=== PATIENT | female | born 2000 ===

== ENCOUNTER → 2023-01-30 | Day surgery (SDC) | payer BC ==
[2023-01-26 14:15] VITALS: BP 120/45
[~2023-01-30] VITALS: Ht 165.1 cm; Wt 65.8 kg
[~2023-01-30] MED LIST: PROZAC20 MG PO
[2023-01-30 08:33] VITALS: BP 103/50
[2023-01-30 10:28] VITALS: BP 107/58
[2023-01-30 10:43] VITALS: BP 116/63
[2023-01-30 10:58] VITALS: BP 104/62
[2023-01-30 11:13] VITALS: BP 102/64
[2023-01-30 11:24] VITALS: BP 105/64
== END | disposition home or self-care (01) ==
LOC: SDC 01-26 14:00
PROVIDERS: ATTEND Obstetrics & Gynecology
DX: Z30.2 Encounter for sterilization (principal); F41.9 Anxiety disorder, unspecified; F32.A Depression, unspecified; D64.9 Anemia, unspecified; F17.200 Nicotine dependence, unspecified, uncomplicated; Z79.899 Other long term (current) drug therapy; Z98.890 Other specified postprocedural states